=== PATIENT | male | born 1995 | race African-American/Black ===

== ENCOUNTER 2021-10-14 12:26 | Emergency (ER) | payer SELFPAY | END 2021-10-14 13:41 | disposition left against medical advice (07) | LOC: CSHERS 12:26 | DX: Z53.21 Procedure and treatment not carried out due to patient leaving prior to being seen by health care provider (principal) ==

== ENCOUNTER 2022-02-20 12:38 | Emergency (ER) | payer SELFPAY | END 2022-02-20 14:02 | disposition left against medical advice (07) | LOC: CSHERS 12:38 | DX: Z53.21 Procedure and treatment not carried out due to patient leaving prior to being seen by health care provider (principal) ==